=== PATIENT | female | born 1995 | race Caucasian/White ===

== ENCOUNTER 2016-08-15 13:46 | Emergency (ER) | payer BC ==
[2016-08-15 14:56] VITALS: BP 113/62
--- NOTE | 2016-08-15 15:05 | UC ---
FLU HPI - History of Current Complaint Chief Complaint: UCGeneralIllness Stated Complaint: BODYACHES,CHILLS,FEVER,SORE THROAT Time Seen by Provider: 08/15/16 14:57 Hx Obtained From: Patient Hx Last Menstrual Period: 08/07/16 ?: No Onset/Duration: Sudden Onset, Lasting Days - 1, Worse Since - today Severity Currently: Mild Severity Initially: Moderate Associated Signs & Symptoms: Positive: Myalgia, Cough, Sore Throat, Nasal Congestion, Headache - parietal pressure headache Related Hx: Possible Flu/Infectious Exposure - Risk Factors Influenza Risk Factors: Negative - Allergy/Home Medications Allergies/Adverse Reactions: Allergies Allergy/AdvReac Type Severity Reaction Status Date / Time No Known Allergies Allergy Verified 08/15/16 14:56 Home Medications: Home Medications NK [No Home Medications Reported] 08/15/16 [History Confirmed 08/15/16] PMH/Surg Hx/FS Hx/Imm Hx Previously Healthy: Yes Cardiovascular History Of: Denies: Hypertension Respiratory History Of: Denies: Asthma GI/ History Of: Denies: Gastroesophageal Reflux - Surgical History Surgical History: None - Family History Known Family History: Positive: Hypertension Negative: Cardiac Disease, Diabetes - Social History Occupation: Student Lives: Alone Alcohol Use: Weekly Substance Use Type: None Smoking Status (MU): Never Smoked Tobacco Have You Smoked in the Last Year: No Review of Systems Constitutional: Fever, Chills ENT: Sore Throat Respiratory: Cough Musculoskeletal: Myalgia Neurological: Headache All Other Systems Reviewed And Are Negative: Yes Physical Exam Triage Information Reviewed: Yes Appearance: No Pain Distress, Well-Nourished, Ill-Appearing Vital Signs: Initial Vital Signs Temp 100.9 F 08/15/16 14:51 Pulse 99 08/15/16 14:51 Resp 16 08/15/16 14:51 BP 113/62 08/15/16 14:51 Pulse Ox 98 08/15/16 14:51 Vital Signs Reviewed: Yes Eyes: Positive: Conjunctiva Clear ENT: Positive: Pharyngeal erythema, Nasal congestion, TMs normal - cerumen AD> , Tonsillar swelling - with some peritonsillar ulcers Neck: Positive: Tenderness @ - anterior cervical triangle. Respiratory Exam: Normal Cardiovascular Exam: Normal Musculoskeletal Exam: Normal Neurological Exam: Normal Psychological Exam: Normal Skin Exam: Normal Flu Course/Dx - Differential Dx/Diagnosis Differential Diagnosis/HQI/PQRI: Influenza, Pneumonia, Upper Respiratory Infection Provider Diagnoses: Acute URI Discharge - Discharge Plan Condition: Stable Disposition: HOME Patient Education Materials: Upper Respiratory Infection (ED) Additional Instructions: NASAL SPRAYS AND DROPS: Afrin in the PUMP/ MIST bottle. Tilt your head down and look at the floor while doing a strong sniff with the spray. Decongestant nasal sprays and drops often give dramatic relief from congestion. They are often recommended for patients with sinus infection to assist with sinus drainage. Persons with high blood pressure should consult the doctor before using these nasal sprays. Afrin and Isacc-Synephrine are common eaah-xqk-wvqbizr preparations. They should not be used for more than five days, as "rebound" congestion can occur - - the congestion flares as the drug wears off. A way of dealing with this rebound congestion problem is to medicate only one nostril each time, allowing the other nostril to recover from the medicine' s effects. When you no longer need the drug during the day, spray only one nostril each night. This helps you sleep well without severe rebound congestion. Call the doctor if you develop severe headache, palpitations, or chest pain. Cold-eeze Zinc Lozenges: These are helpful if started in the first 48-72 hours of an upper respiratory illness. You want to buy the specific brand Cold-eeze.
== END 2016-08-15 15:26 | disposition home or self-care (01) ==
LOC: UCCORT 13:46
DX: J06.9 Acute upper respiratory infection, unspecified (principal); R50.9 Fever, unspecified; M79.1 Myalgia; H61.23 Impacted cerumen, bilateral; J35.8 Other chronic diseases of tonsils and adenoids
CPT/HCPCS: 87502; 99201; G0463

== ENCOUNTER 2017-03-10 10:07 | Emergency (ER) | payer BC ==
[2017-03-10 10:27] VITALS: BP 114/78
--- NOTE | 2017-03-10 10:38 | UC ---
Throat Pain/Nasal Junior HPI - HPI Summary HPI Summary: 22 year old female with sore throat. SORE THROAT FOR THREE DAYS. BODY ACHES. NO NAUSEA OR COUGH. [ End ] - History of Current Complaint Chief Complaint: UCRespiratory Stated Complaint: THROAT COMPLAINT Time Seen by Provider: 03/10/17 10:35 Hx Obtained From: Patient Hx Last Menstrual Period: 02/24/17 Onset/Duration: Gradual Onset - Allergies/Home Medications Allergies/Adverse Reactions: Allergies Allergy/AdvReac Type Severity Reaction Status Date / Time No Known Allergies Allergy Verified 03/10/17 10:21 PMH/Surg Hx/FS Hx/Imm Hx Previously Healthy: Yes - Surgical History Surgical History: None - Family History Known Family History: Positive: Hypertension Negative: Cardiac Disease, Diabetes - Social History Occupation: Student Lives: Dormitory/Roommates Alcohol Use: Weekly Substance Use Type: None Smoking Status (MU): Never Smoked Tobacco Have You Smoked in the Last Year: No - Immunization History Most Recent Influenza Vaccination: NOT IN 2017 Review of Systems ENT: Sore Throat, Nasal Discharge All Other Systems Reviewed And Are Negative: Yes Physical Exam Triage Information Reviewed: Yes Appearance: Well-Appearing, No Pain Distress, Well-Nourished Vital Signs: Initial Vital Signs Temp 98.7 F 03/10/17 10:21 Pulse 92 03/10/17 10:21 Resp 16 03/10/17 10:21 BP 114/78 03/10/17 10:21 Pulse Ox 98 03/10/17 10:21 Vital Signs Reviewed: Yes Eye Exam: Normal ENT Exam: Normal ENT: Positive: Pharyngeal erythema, Nasal congestion. Negative: Tonsillar swelling, Tonsillar exudate Neck exam: Normal Respiratory Exam: Normal Cardiovascular Exam: Normal Musculoskeletal Exam: Normal Neurological Exam: Normal Psychological Exam: Normal Skin Exam: Normal Throat Pain/Nasal Course/Dx - Course Course Of Treatment: neg strep - Differential Dx/Diagnosis Differential Diagnosis/HQI/PQRI: Pharyngitis, Sinusitis, Tonsillitis, URI Provider Diagnoses: pharyngitis Discharge - Discharge Plan Condition: Good Disposition: HOME Prescriptions: Magic Mouth Was-KAREN/MAAL/LIDO* 5 ml SWISH SPIT QID #80 ml Patient Education Materials: Pharyngitis (ED) Forms: *School Release Referrals: Non Staff,Doctor [Primary Care Provider] - 4 Days Additional Instructions: You had a negative strep test today.
== END 2017-03-10 10:56 | disposition home or self-care (01) ==
LOC: UCCORT 10:07
DX: J02.9 Acute pharyngitis, unspecified (principal); I10 Essential (primary) hypertension
CPT/HCPCS: 87651; 99212; G0463

== ENCOUNTER 2017-07-02 12:16 | Emergency (ER) | payer BC ==
[2017-07-02 12:37] VITALS: BP 121/75
--- NOTE | 2017-07-02 12:45 | UC ---
Throat Pain/Nasal Junior HPI - HPI Summary HPI Summary: SORE THROAT X 2 DAYS + FEVER, CHILLS, BODY ACHES, NO COUGH , NO RUNNY NOSE - History of Current Complaint Chief Complaint: UCRespiratory Stated Complaint: SORE THROAT Time Seen by Provider: 07/02/17 12:31 Hx Obtained From: Patient Hx Last Menstrual Period: 06/03/17 ?: No Onset/Duration: Gradual Onset, Lasting Days - 2, Still Present Severity: Moderate Cough: Nonproductive Associated Signs & Symptoms: Positive: Fever. Negative: Nasal Discharge, Rash - Allergies/Home Medications Allergies/Adverse Reactions: Allergies Allergy/AdvReac Type Severity Reaction Status Date / Time No Known Allergies Allergy Verified 07/02/17 12:37 Home Medications: Home Medications NK [No Home Medications Reported] 07/02/17 [History Confirmed 07/02/17] PMH/Surg Hx/FS Hx/Imm Hx Previously Healthy: Yes - Surgical History Surgical History: None - Family History Known Family History: Positive: Hypertension Negative: Cardiac Disease, Diabetes - Social History Alcohol Use: Occasionally Substance Use Type: None Smoking Status (MU): Never Smoked Tobacco Have You Smoked in the Last Year: No - Immunization History Most Recent Influenza Vaccination: NOT IN 2017 Review of Systems Constitutional: Fever, Chills, Fatigue Skin: Negative Eyes: Negative ENT: Sore Throat Respiratory: Negative Cardiovascular: Negative Gastrointestinal: Negative Is Patient Immunocompromised?: No All Other Systems Reviewed And Are Negative: Yes Physical Exam Triage Information Reviewed: Yes Appearance: Well-Appearing, No Pain Distress, Well-Nourished Vital Signs: Initial Vital Signs Temp 98.2 F 07/02/17 12:32 Pulse 94 07/02/17 12:32 Resp 16 07/02/17 12:32 BP 121/75 07/02/17 12:32 Pulse Ox 98 07/02/17 12:32 Vital Signs Reviewed: Yes Eyes: Positive: Conjunctiva Clear ENT: Positive: Normal ENT inspection, Hearing grossly normal, Pharyngeal erythema, TMs normal. Negative: Nasal congestion, Nasal drainage Neck: Positive: Supple, Nontender, No Lymphadenopathy Respiratory: Positive: Chest non-tender, Lungs clear, Normal breath sounds Cardiovascular: Positive: RRR, No Murmur, Pulses Normal Abdominal Exam: Normal Abdomen Description: Positive: Nontender, No Organomegaly, Soft Skin Exam: Normal Throat Pain/Nasal Course/Dx - Differential Dx/Diagnosis Provider Diagnoses: PHARYNGITIS Discharge - Discharge Plan Condition: Stable Disposition: HOME Patient Education Materials: Pharyngitis (ED) Referrals: Non Staff,Doctor [Primary Care Provider] - If Needed Additional Instructions: negative Rapid strep viral pharyngitis , no need for antibiotics
== END 2017-07-02 12:56 | disposition home or self-care (01) ==
LOC: UCCORT 12:16
DX: J02.9 Acute pharyngitis, unspecified (principal)
CPT/HCPCS: 87651; 99211; G0463

== ENCOUNTER 2017-08-15 13:21 | Emergency (ER) | payer BC ==
[2017-08-15 14:25] VITALS: BP 124/86
--- NOTE | 2017-08-15 14:26 | UC ---
Eye Complaint HPI - HPI Summary HPI Summary: 22 y/o female presents to the urgent care c/o bilateral eyes redness and w/ yellowish eye discharge. mild itchiness since Tuesday. Pt states this morning she had mild crusting in his eyelashes. Pt stopped wearing eye contact on last Tuesday. Pt denies eye pain, photophobia, visual disturbance, GOODMAN, URI, abdominal pain, N/V/D - History of Current Complaint Hx Obtained From: Patient Hx Last Menstrual Period: 08/08/17 Onset/Duration: Gradual Onset, Lasting Days - 2 days, Still Present Timing: Constant Severity Initially: Mild Severity Currently: Mild Pain Intensity: 0 Pain Scale Used: 0-10 Numeric Location of Injury: Conjunctiva - c/l redness Character: Foreign Body Sensation Aggravating Factor(s): Contact Lens Alleviating Factor(s): Nothing Associated Signs And Symptoms: Positive: Drainage (Purulent). Negative: Photophobia, Vision Impairment Bilateral, Fever, Swelling - Risk Factors Penetrating Injury Risk Factor: Negative Acute Glaucoma Risk Factors: Negative <Chaparrita Draper - Last Filed: 08/16/17 01:56> <Argenis Lundy - Last Filed: 08/16/17 11:16> - History of Current Complaint Chief Complaint: UCEye Stated Complaint: BILATERAL EYE COMPLAINT Time Seen by Provider: 08/15/17 14:24 - Allergies/Home Medications Allergies/Adverse Reactions: Allergies Allergy/AdvReac Type Severity Reaction Status Date / Time No Known Allergies Allergy Verified 08/15/17 14:20 PMH/Surg Hx/FS Hx/Imm Hx Previously Healthy: Yes - Pt denies PMHX - Surgical History Surgical History: None - Family History Known Family History: Positive: Hypertension Negative: Cardiac Disease, Diabetes - Social History Occupation: Student Lives: Dormitory/Roommates Alcohol Use: Occasionally Substance Use Type: None Smoking Status (MU): Never Smoked Tobacco Have You Smoked in the Last Year: No - Immunization History Most Recent Influenza Vaccination: NOT IN 2017 Vaccination Up to Date: Yes <Chaparrita Draper - Last Filed: 08/16/17 01:56> Review of Systems Skin: Negative Eyes: Drainage - yellowish, Eye Redness - B/L, Other - mild itching ENT: Negative Respiratory: Negative Cardiovascular: Negative Gastrointestinal: Negative Genitourinary: Negative Motor: Negative Neurovascular: Negative Musculoskeletal: Negative Neurological: Negative Psychological: Negative Is Patient Immunocompromised?: No All Other Systems Reviewed And Are Negative: Yes <Chaparrita Draper - Last Filed: 08/16/17 01:56> Physical Exam - Summary Physical Exam Summary: Vital Signs Reviewed: Yes General: Well appearing, well nourished female in no apparent pain distress Eyes: Positive: B/L Conjunctiva mild Inflamed - Visual acuity: WNL,Visual nicholson : full to confrontation. PERRLA, EOMI intact w/out limitation or complaint of pain. eyelashes w/ balck mascara. mild tearing and yellowish drainage observed. No ciliary flush. No chemosis, No photophobia. Normal fundoscopic exam; no proptosis, exophthalmos, nystagmus. ENT: Positive: Normal ENT inspection, Hearing grossly normal, Pharynx normal, Nasal congestion, Nasal drainage - clear, TMs normal - B/L external ear canal clear , TM's WNL. Negative: Tonsillar swelling, Tonsillar exudate Neck: Positive: Supple, Nontender, No Lymphadenopathy Respiratory: Positive: Chest nontender, Lungs clear, Normal breath sounds, No respiratory distress Cardiovascular: Positive: RRR, No Murmur, Pulses Normal, Brisk Capillary Refill Abdomen Description: Positive: Nontender, No Organomegaly, Soft. Negative: CVA Tenderness (R), CVA Tenderness (L) Bowel Sounds: Positive: Present Musculoskeletal: Positive: Strength Intact, ROM Intact, No Edema Neurological Exam: Normal Psychological Exam: Normal Skin Exam: Normal Triage Information Reviewed: Yes Vital Signs: Initial Vital Signs Temp 98.2 F 08/15/17 14:21 Pulse 74 08/15/17 14:21 Resp 16 08/15/17 14:21 BP 124/86 08/15/17 14:21 Pulse Ox 100 08/15/17 14:21 <Chaparrita Draper - Last Filed: 08/16/17 01:56> Vital Signs: Initial Vital Signs Temp 98.2 F 08/15/17 14:21 Pulse 74 08/15/17 14:21 Resp 16 08/15/17 14:21 BP 124/86 08/15/17 14:21 Pulse Ox 100 08/15/17 14:21 <Argenis Lundy - Last Filed: 08/16/17 11:16> Eye Complaint Course/Dx - Course Course Of Treatment: 22 y/o female presents to the urgent care c/o bilateral eyes redness and w/ yellowish eye discharge. mild itchiness since Tuesday. Pt states this morning she had mild crusting in his eyelashes. Pt stopped wearing eye contact on last Tuesday. Pt denies eye pain, photophobia, visual disturbance, GOODMAN, URI, abdominal pain, N/V/D. Hx obtained. Pt w/ B/L bacterial conjunctivitis on examination. Pt Rx Erythromycin ophthalmic ointment for bacterial conjunctivitis. Pt instructed how to apply medication and if symptoms do not improve, advised to return to the urgent care or f/u with PCP for further evaluation and treatment. Pt understood and agreed. - Differential Dx/Diagnosis Differential Diagnosis/HQI/PQRI: Conjunctivitis, Foreign Body, Periorbital Cellulitis, Uveitis Provider Diagnoses: 1- B/L acute bacterial conjunctivitis <Chaparrita Draper - Last Filed: 08/16/17 01:56> Discharge <Chaparrita Draper - Last Filed: 08/16/17 01:56> <Argenis Lundy - Last Filed: 08/16/17 11:16> - Discharge Plan Condition: Stable Disposition: HOME Prescriptions: Erythromycin TOPICAL GEL* [Erythromycin OPTH OINT*] 1 applic TOPICAL TID #1 oint Patient Education Materials: Conjunctivitis (ED) Referrals: [facility] [place] [facility] [Outside] - If Needed Additional Instructions: 1-Please apply ophthalmic ointment as directed. Please do not use any make up. do not wear contact lenses until symptoms resolve completely 2-If you do not improve or if symptoms worsen please f/u PCP or return here for further evaluation and treatment Attestation Statement User Type: Provider - I was available for consult. This patient was seen by the CANDICE. The patient was not presented to, seen by, or examined by me. Theodore <Argenis Lundy - Last Filed: 08/16/17 11:16>
== END 2017-08-15 14:47 | disposition home or self-care (01) ==
LOC: UCCORT 13:21
DX: H10.89 Other conjunctivitis (principal)
CPT/HCPCS: 99212; G0463

== ENCOUNTER 2017-10-04 14:47 | Emergency (ER) | payer BC ==
[2017-10-04 15:05] VITALS: BP 119/80
--- NOTE | 2017-10-04 15:32 | UC ---
Skin Complaint HPI - HPI Summary HPI Summary: 22 yo female with painful lip rash x 3 days - History of Current Complaint Chief Complaint: UCSkin Time Seen by Provider: 10/04/17 15:09 Stated Complaint: LIP COMPLAINT Hx Obtained From: Patient Hx Last Menstrual Period: 09/20/17 Onset/Duration: Gradual Onset Skin Exposure Onset/Duration: Days Ago Timing: Constant Onset Severity: Mild Current Severity: Mild Pain Intensity: 4 Pain Scale Used: 0-10 Numeric Location: Other - lips - Allergy/Home Medications Allergies/Adverse Reactions: Allergies Allergy/AdvReac Type Severity Reaction Status Date / Time No Known Allergies Allergy Verified 10/04/17 14:57 Review of Systems Constitutional: Negative Skin: Rash Eyes: Negative ENT: Negative Respiratory: Negative Cardiovascular: Negative Gastrointestinal: Negative Genitourinary: Negative Motor: Negative Neurovascular: Negative Musculoskeletal: Negative Neurological: Negative Psychological: Negative Is Patient Immunocompromised?: No All Other Systems Reviewed And Are Negative: Yes PMH/Surg Hx/FS Hx/Imm Hx Previously Healthy: Yes - Surgical History Surgical History: None - Family History Known Family History: Positive: Hypertension Negative: Cardiac Disease, Diabetes - Social History Alcohol Use: Weekly Substance Use Type: None Smoking Status (MU): Never Smoked Tobacco Have You Smoked in the Last Year: No - Immunization History Most Recent Influenza Vaccination: NOT IN 2017 Vaccination Up to Date: Yes Physical Exam Triage Information Reviewed: Yes Appearance: Well-Appearing, No Pain Distress, Well-Nourished Vital Signs: Initial Vital Signs Temp 98.5 F 10/04/17 14:58 Pulse 87 10/04/17 14:58 Resp 18 10/04/17 14:58 BP 119/80 10/04/17 14:58 Pulse Ox 98 10/04/17 14:58 Vital Signs Reviewed: Yes Eyes: Positive: Conjunctiva Clear ENT: Positive: Hearing grossly normal, Pharynx normal, Uvula midline. Negative : Nasal congestion, Nasal drainage, Trismus, Muffled voice, Hoarse voice Neck: Positive: Supple, Nontender Respiratory: Positive: Lungs clear, Normal breath sounds, No respiratory distress Cardiovascular: Positive: RRR, No Murmur Musculoskeletal: Positive: ROM Intact, No Edema Neurological: Positive: Alert Psychological Exam: Normal Skin Exam: Other - minute vesicles on lips no lesions past félix border Course/Dx - Diagnoses Provider Diagnoses: herpes labialis Discharge - Sign-Out/Discharge Documenting (check all that apply): Discharge/Admit/Transfer - Discharge Plan Condition: Stable Disposition: HOME Prescriptions: ValACYclovir (*) [Valtrex 1 GM(*)] 2 gm PO Q12H #4 tab Referrals: Non Staff,Doctor [Primary Care Provider] - Additional Instructions: possible cold sores valtrex 1 gm 2 pills every 12 hours (#4) use a water based lip balm -aquaphor lip repair is one..make sure there is no petrolatum in the brand you get - Billing Disposition and Condition Condition: STABLE Disposition: HOME
== END 2017-10-04 15:30 | disposition home or self-care (01) ==
LOC: UCCORT 14:47
DX: B00.1 Herpesviral vesicular dermatitis (principal)
CPT/HCPCS: 99212; G0463